=== PATIENT | female | born 1995 | race Two or more races ===

== ENCOUNTER 2017-01-28 00:28 | Emergency (ER) | payer SELFPAY ==
[~2017-01-28] VITALS: Ht 172.7 cm; Wt 65.0 kg
[2017-01-28 01:55] VITALS: BP 124/66
[2017-01-28] MEDS ORDERED: DIPHENHYDRAMINE 25MG CAPSULE PO ONE (02:30)
[2017-01-28] MEDS ORDERED: PREDNISONE 20MG TABLET PO ONE (02:30)
[2017-01-28] MEDS ORDERED: FAMOTIDINE 20MG TABLET PO ONE (02:30)
== END 2017-01-28 03:15 | disposition home or self-care (01) ==
LOC: ER 00:28
DX: T78.40XA Allergy, unspecified, initial encounter (principal); Y93.89 Activity, other specified; Y99.8 Other external cause status; Y92.89 Other specified places as the place of occurrence of the external cause
CPT/HCPCS: 99284; J7512; Q0163